=== PATIENT | female | born 1985 | race Hispanic/Latino ===

== ENCOUNTER 2019-01-19 13:19 | Emergency (ER) | payer SELFPAY ==
[2019-01-19] MEDS ORDERED: ONDANSETRON ODT 4 MG TAB ONE (14:26)
[2019-01-19 14:45] LABS: APPEARANCE,URINE Clear (CLEAR); BILIRUBIN,URINE Negative (NEGATIVE); COLOR,URINE Yellow (YELLOW); GLUCOSE, URINE (UA) Negative (NEGATIVE); KETONES,URINE Negative (NEGATIVE); LEUKOCYTE ESTERASE ,URINE Negative (NEGATIVE); NITRATE,URINE Negative (NEGATIVE); OCCULT BLOOD,URINE Negative (NEGATIVE); PROTEIN,URINE Negative (NEGATIVE)
[2019-01-19 14:52] LABS: BASOPHILS % (AUTO) 0.5 % (0.0-5.0); EOSINOPHILS % (AUTO) 0.8 % (0.0-8.0); HEMATOCRIT 45.4 % (36-48); LYMPHOCYTES % (AUTO) 22.7 % (21.0-51.0); MEAN CORPUSCULAR HGB CONC 33.4 g/dL (32.0-36.0); MEAN CORPUSCULAR VOLUME 92.7 fL (79-99); MONOCYTES % (AUTO) 4.6 % (3.0-13.0); NEUTROPHILS % (AUTO) 71.4 % (40.0-77.0); PLATELET COUNT (AUTO) 234 K/uL (130-400); RED BLOOD CELL COUNT(AUTO) 4.89 MIL/uL (4.00-5.50); RED CELL DISTRIBUTION WIDTH 13.5 % (11.0-15.5); WHITE BLOOD COUNT (AUTO) 12.4 K/uL (4.8-10.8)
[2019-01-19 14:55] LABS: HCG,QUAL RESULT NEGATIVE (NEGATIVE)
[2019-01-19 15:00] LABS: CREATININE 0.7 mg/dL (0.5-1.5); POTASSIUM 4.2 mmol/L (3.5-5.1)
[2019-01-19 15:05] LABS: ALBUMIN 3.9 g/dL (3.5-5.0); BILIRUBIN,TOTAL 0.1 mg/dL (0.2-1.0); TOTAL PROTEIN, SERUM 7.6 g/dL (6.0-8.3)
== END 2019-01-19 16:57 | disposition home or self-care (01) ==
LOC: EDH 13:19
DX: K52.9 Noninfective gastroenteritis and colitis, unspecified (principal); L08.89 Other specified local infections of the skin and subcutaneous tissue; Z88.0 Allergy status to penicillin; Z72.0 Tobacco use
CPT/HCPCS: 36415; 76705; 80053; 81003; 81025; 83690; 85025

== ENCOUNTER 2019-02-03 11:23 | Emergency (ER) | payer SELFPAY ==
[2019-02-03] MEDS ORDERED: LIDOCAINE HCL 1% 20 ML VIAL ONE (12:38)
== END 2019-02-03 13:18 | disposition home or self-care (01) ==
LOC: EDH 11:23
DX: L02.415 Cutaneous abscess of right lower limb (principal); Z88.0 Allergy status to penicillin
CPT/HCPCS: 10160

== ENCOUNTER 2019-06-12 21:45 | Emergency (ER) | payer OTHER ==
[2019-06-12 22:25] LABS: APPEARANCE,URINE Clear (CLEAR); BILIRUBIN,URINE Negative (NEGATIVE); COLOR,URINE Yellow (YELLOW); GLUCOSE, URINE (UA) Negative (NEGATIVE); KETONES,URINE Negative (NEGATIVE); LEUKOCYTE ESTERASE ,URINE Negative (NEGATIVE); NITRATE,URINE Negative (NEGATIVE); OCCULT BLOOD,URINE Negative (NEGATIVE); PROTEIN,URINE Negative (NEGATIVE)
[2019-06-12 22:27] LABS: HCG,QUAL RESULT NEGATIVE (NEGATIVE)
[2019-06-12] MEDS ORDERED: LIDOCAINE 5% TOPICAL PATCH TP ONE (22:36)
[2019-06-12] MEDS ORDERED: KETOROLAC TROMETHAMINE 60 MG/2 ML VIAL ONE (22:36)
[2019-06-12] MEDS ORDERED: CYCLOBENZAPRINE HCL 10 MG TABLET ONE (22:38)
== END 2019-06-12 23:47 | disposition home or self-care (01) ==
LOC: EDH 21:45
DX: S29.012A Strain of muscle and tendon of back wall of thorax, initial encounter (principal); Z88.0 Allergy status to penicillin; Z72.0 Tobacco use; V49.59XA Passenger injured in collision with other motor vehicles in traffic accident, initial encounter; Y93.89 Activity, other specified; Y92.89 Other specified places as the place of occurrence of the external cause; Y99.8 Other external cause status
CPT/HCPCS: 81003; 81025; 96372; 99284; J1885